=== PATIENT | male | born 1995 | race Caucasian/White ===

== ENCOUNTER 2021-09-05 06:38 | Emergency (ER) | payer SELFPAY ==
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
[2021-09-05 06:51] VITALS: BMI 28.7
[2021-09-05 06:55] VITALS: BP 174/117; PULSE 102; RESP 18; TEMP 37.2; O2SAT 99; BMI 32.8
--- NOTE | 2021-09-05 06:55 | CT_ITS ---
PROCEDURE INFORMATION: Exam: CT Head Without Contrast Exam date and time: 09/05/2021 6:55 AM Age: 26 years old Clinical indication: Pain; Headache; Post-traumatic; Additional info: Trauma, head injury TECHNIQUE: Imaging protocol: Computed tomography of the head without contrast. Radiation optimization: All CT scans at this facility use at least one of these dose optimization techniques: automated exposure control; mA and/or kV adjustment per patient size (includes targeted exams where dose is matched to clinical indication); or iterative reconstruction. COMPARISON: No relevant prior studies available. FINDINGS: Brain: Normal. No hemorrhage. Unremarkable white matter. No mass effect. Cerebral ventricles: No ventriculomegaly. Paranasal sinuses: There is opacification of the right maxillary sinus. There is mild left maxillary sinus mucosal thickening. Mastoid air cells: Visualized mastoid air cells are well aerated. Bones/joints: There are chronic nasal bone fractures. Soft tissues: Unremarkable. IMPRESSION: No acute hemorrhage or calvarial fracture.
--- NOTE | 2021-09-05 07:14 | PC.NURSE ---
pt to ct scan
--- NOTE | 2021-09-05 07:52 | PC.NURSE ---
pt sitting in chair denies any relief of headache
[2021-09-05 08:05] VITALS: BP 174/117; PULSE 102; RESP 18; TEMP 37.2; O2SAT 99
== END 2021-09-05 08:05 | disposition home or self-care (01) ==
PROVIDERS: Emergency Provider Family Medicine
DX: S06.0X1A Concussion with loss of consciousness of 30 minutes or less, initial encounter (principal); W18.39XA Other fall on same level, initial encounter; Y92.89 Other specified places as the place of occurrence of the external cause; K21.9 Gastro-esophageal reflux disease without esophagitis; R03.0 Elevated blood-pressure reading, without diagnosis of hypertension
CPT/HCPCS: 70450; 99282